=== PATIENT | male | born 1940 | race Caucasian/White ===

== ENCOUNTER 2017-08-17 18:13 | Emergency (ER) | payer OTHER ==
[~2017-08-17] VITALS: Ht 180.3 cm; Wt 96.8 kg
[~2017-08-17 18:13] MED LIST: B/P MEDICATION; LIPITOR20 MG PO; PREVACID15 MG PO; PROSTATE MEDICATION
[2017-08-17 22:52] VITALS: BP 201/99
== END 2017-08-17 22:52 | disposition home or self-care (01) ==
LOC: EME 18:13
DX: S61.217A Laceration without foreign body of left little finger without damage to nail, initial encounter (principal); W45.8XXA Other foreign body or object entering through skin, initial encounter; Z79.01 Long term (current) use of anticoagulants; Z23 Encounter for immunization
CPT/HCPCS: 73130; 99281; 99284